=== PATIENT | female | born 1960 | race African-American/Black ===

== ENCOUNTER → 2017-01-16 | Outpatient (CLI) | payer MEDICARE, OTHER ==
[2015-11-30 12:21] VITALS: BP 144/76
[~2017-01-16] MED LIST: AMLO10TA2 PO; ATRO2DRO3 OP; LISI1TAB7 PO; MULT-246 PO; NAPR220T70 PO; OXYC-323 PO; PRED5DRO6 OP; RANI150T6 PO; TIZA4TAB PO; TRAM50TA PO
--- NOTE | 2017-01-16 12:54 | RAD ---
Right knee, 3 views, 01/16/2017: History: Chronic knee pain There is patchy bony demineralization. No fracture or dislocation is evident. The knee joint spaces appear to be well preserved. There is mild posterior patellar degenerative change. No significant joint effusion is evident. Mild scattered arterial calcifications are noted. IMPRESSION: 1. Demineralization. 2. Mild patellofemoral degenerative change. 3. No acute abnormality is detected.
--- NOTE | 2017-01-16 12:55 | RAD ---
Right hand, 3 views, 01/16/2017: History: Hand pain, rheumatoid arthritis There is patchy bony demineralization. No bony erosions are seen. No fracture or dislocation is evident. There are only mild degenerative changes at the first CMC joint and the radiocarpal articulation. The soft tissues are unremarkable. IMPRESSION: 1. Demineralization. 2. No acute abnormality is detected.
== END | disposition home or self-care (01) ==
LOC: RAD 10:35
PROVIDERS: ATTEND Internal Medicine
DX: M17.11 Unilateral primary osteoarthritis, right knee (principal); M79.641 Pain in right hand; M06.9 Rheumatoid arthritis, unspecified
CPT/HCPCS: 73130; 73562

== ENCOUNTER → 2017-11-12 | Outpatient (CLI) | payer OTHER | END | disposition home or self-care (01) | LOC: RAD 09:59 | DX: M25.571 Pain in right ankle and joints of right foot (principal); S92.901D Unspecified fracture of right foot, subsequent encounter for fracture with routine healing; X58.XXXD Exposure to other specified factors, subsequent encounter | CPT/HCPCS: 73600 ==